=== PATIENT | male | born 1960 | race Caucasian/White ===

== ENCOUNTER 2017-02-21 16:05 | Emergency (ER) | payer BC ==
[~2017-02-21 16:05] MED LIST: ALBUTEROL0.63 MG/3 INH; BACTRIM DS TAB1 EACH PO; CIPRO500 MG PO; COLCHICINE 0.60.6 MG PO; FERROUS SULFAT325 MG PO; K-DUR TAB 10 M10 MEQ PO; LASIX20 MG PO; LISINOPRIL20 MG PO; NEURONTIN 300300 MG PO; NORVASC 5 MG TAB5 MG PO; PLAVIX 75 MG TA75 MG PO; SINGULAIR10 MG PO; TIZANIDINE HCL4 MG PO; TOPROL XL 50 MG50 MG PO; ULTRAM50 MG PO; VITAMIN D250000 UNIT PO
[2017-02-21 20:43] LABS: HEMOGLOBIN 15.7 gm/dl (14.0-17.5); RED BLOOD COUNT 4.91 M/UL (4.20-5.50); WHITE BLOOD COUNT 10.4 K/UL (4.5-11.0)
[2017-08-23] MEDS ORDERED: SEROQUEL200 MG PO (09:19)
[2017-08-23] MEDS ORDERED: KLONOPIN TAB 00.5 MG PO (09:19)
[2017-08-23] MEDS ORDERED: SYMBICORT 16010.2 GM INH (09:20)
[2017-08-23] MEDS ORDERED: DALIRESP500 MCG PO (09:20)
[2017-08-23] MEDS ORDERED: COMBIVENT RESPIM4 GM INH (09:22)
[2017-08-23] MEDS ORDERED: VITAMIN D250000 UNIT PO (09:24)
[2017-08-23] MEDS ORDERED: [UNRECOGNIZED DRUG - OTHER] INH (09:59)
[2017-08-26] MEDS ORDERED: CEFUROXIME250 MG PO (16:34)
[2017-08-26] MEDS ORDERED: MEDROL DOSEPAK 24 MG PO (16:36)
[2017-08-26] MEDS ORDERED: LOPRESSOR 25 MG25 MG PO (16:37)
[2017-08-26] MEDS ORDERED: HABITROL 21 MG P1 EA TD (16:37)
== END 2017-02-21 23:05 | disposition home or self-care (01) ==
LOC: ER1 16:05
PROVIDERS: Emergency Medicine
DX: L03.115 Cellulitis of right lower limb (principal); E11.628 Type 2 diabetes mellitus with other skin complications; I12.9 Hypertensive chronic kidney disease with stage 1 through stage 4 chronic kidney disease, or unspecified chronic kidney disease; E11.22 Type 2 diabetes mellitus with diabetic chronic kidney disease; N18.9 Chronic kidney disease, unspecified; Z88.5 Allergy status to narcotic agent; Z88.6 Allergy status to analgesic agent
CPT/HCPCS: 36415; 71020; 80048; 81001; 83605; 83880; 84484; 85025; 87040; 87086; 93005; 94664; 96365; 96372; 99283; J1650

== ENCOUNTER → 2017-02-22 | Outpatient (CLI) | payer BC ==
[~2017-02-22] MED LIST changes: +ASPIR-LOW81 MG PO; +CATAPRES 0.1MG0.1 MG PO; +CEFUROXIME250 MG PO; +COMBIVENT RESPIM4 GM INH; +DALIRESP500 MCG PO; +DIAMOX 250 MG250 MG PO; +ELIQUIS 5 MG TAB5 MG PO; +ELIQUIS5 MG PO; +HABITROL 21 MG P1 EA TD; +KLONOPIN TAB 00.5 MG PO; +LEVAQUIN750 MG PO; +LOPRESSOR 25 MG25 MG PO; +LORTAB 5-325 M1 EACH PO; +MEDROL DOSEPAK 24 MG PO; +NORCO 5-325 TA1 EACH PO; +SEROQUEL200 MG PO; +SYMBICORT 16010.2 GM INH; +TUDORZA PRESS400 MCG INH; +ULORIC 40 MG TA40 MG PO; +VALIUM 5 MG TAB5 MG PO; +VENLAFAXINE HCL75 MG PO; +[UNRECOGNIZED DRUG - OTHER] INH
== END ==
LOC: US 11:08
DX: I82.401 Acute embolism and thrombosis of unspecified deep veins of right lower extremity (principal)
CPT/HCPCS: 93971

== ENCOUNTER 2017-03-17 11:56 | Observation (INO) | payer BC ==
[~2017-03-17] VITALS: Ht 177.8 cm; Wt 83.5 kg
[~2017-03-17 11:56] MED LIST changes: -ASPIR-LOW81 MG PO; -CATAPRES 0.1MG0.1 MG PO; -CEFUROXIME250 MG PO; -COMBIVENT RESPIM4 GM INH; -DALIRESP500 MCG PO; -DIAMOX 250 MG250 MG PO; -ELIQUIS 5 MG TAB5 MG PO; -ELIQUIS5 MG PO; -HABITROL 21 MG P1 EA TD; -KLONOPIN TAB 00.5 MG PO; -LEVAQUIN750 MG PO; -LOPRESSOR 25 MG25 MG PO; -LORTAB 5-325 M1 EACH PO; -MEDROL DOSEPAK 24 MG PO; -NORCO 5-325 TA1 EACH PO; -SEROQUEL200 MG PO; -SYMBICORT 16010.2 GM INH; -TUDORZA PRESS400 MCG INH; -ULORIC 40 MG TA40 MG PO; -VALIUM 5 MG TAB5 MG PO; -VENLAFAXINE HCL75 MG PO; -[UNRECOGNIZED DRUG - OTHER] INH
[2017-03-17 12:57] LABS: HEMOGLOBIN 17.6 gm/dl (14.0-17.5); RED BLOOD COUNT 5.48 M/UL (4.20-5.50); WHITE BLOOD COUNT 15.8 K/UL (4.5-11.0)
[2017-03-17 13:09] LABS: BUN/CREATININE RATIO 29 (0-10)
[2017-03-17] MEDS ORDERED: LORTAB 5-325 M1 EACH PO (16:50)
[2017-03-17] MEDS ORDERED: VALIUM 5 MG TAB5 MG PO (16:51)
[2017-03-17] MEDS ORDERED: ASPIR-LOW81 MG PO (16:53)
[2017-03-17] MEDS ORDERED: VENLAFAXINE HCL75 MG PO (17:21)
[2017-03-17] MEDS ORDERED: ULORIC 40 MG TA40 MG PO (17:22)
[2017-03-17] MEDS ORDERED: SINGULAIR10 MG PO (17:22)
[2017-03-17] MEDS ORDERED: CATAPRES 0.1MG0.1 MG PO (17:22)
[2017-03-18 07:17] LABS: HEMOGLOBIN 16.5 gm/dl (14.0-17.5); RED BLOOD COUNT 5.16 M/UL (4.20-5.50); WHITE BLOOD COUNT 11.9 K/UL (4.5-11.0)
[2017-03-18 07:42] LABS: BUN/CREATININE RATIO 28 (0-10)
[2017-03-18] MEDS ORDERED: VALIUM 5 MG TAB5 MG PO (19:42)
[2017-03-18] MEDS ORDERED: ELIQUIS 5 MG TAB5 MG PO (19:53)
[2017-03-18] MEDS ORDERED: ELIQUIS5 MG PO ×2 (19:54→19:55)
[2017-03-18] MEDS ORDERED: NORCO 5-325 TA1 EACH PO (19:56)
[2017-08-23] MEDS ORDERED: SEROQUEL200 MG PO (09:19)
[2017-08-23] MEDS ORDERED: KLONOPIN TAB 00.5 MG PO (09:19)
[2017-08-23] MEDS ORDERED: SYMBICORT 16010.2 GM INH (09:20)
[2017-08-23] MEDS ORDERED: DALIRESP500 MCG PO (09:20)
[2017-08-23] MEDS ORDERED: COMBIVENT RESPIM4 GM INH (09:22)
[2017-08-23] MEDS ORDERED: VITAMIN D250000 UNIT PO (09:24)
[2017-08-23] MEDS ORDERED: [UNRECOGNIZED DRUG - OTHER] INH (09:59)
[2017-08-26] MEDS ORDERED: CEFUROXIME250 MG PO (16:34)
[2017-08-26] MEDS ORDERED: MEDROL DOSEPAK 24 MG PO (16:36)
[2017-08-26] MEDS ORDERED: LOPRESSOR 25 MG25 MG PO (16:37)
[2017-08-26] MEDS ORDERED: HABITROL 21 MG P1 EA TD (16:37)
== END 2017-03-18 20:32 | disposition home or self-care (01) ==
LOC: ER1 11:56 → MED SURG 4 15:25 → ZEROF 15:25 → M/S 18:19 → MED SURG 4 03-18 05:52
PROVIDERS: Emergency Medicine; ADMIT Internal Medicine
DX: I82.401 Acute embolism and thrombosis of unspecified deep veins of right lower extremity (principal); D72.829 Elevated white blood cell count, unspecified; I10 Essential (primary) hypertension; J44.9 Chronic obstructive pulmonary disease, unspecified; M19.90 Unspecified osteoarthritis, unspecified site; D75.1 Secondary polycythemia; M10.9 Gout, unspecified; F41.9 Anxiety disorder, unspecified; F17.290 Nicotine dependence, other tobacco product, uncomplicated; Z79.01 Long term (current) use of anticoagulants; Z79.82 Long term (current) use of aspirin; Z79.02 Long term (current) use of antithrombotics/antiplatelets; Z79.899 Other long term (current) drug therapy; Z98.1 Arthrodesis status; Z88.6 Allergy status to analgesic agent
CPT/HCPCS: 36415; 80048; 80053; 83735; 85025; 85379; 85610; 85730; 93005; 93925; 94640; 94664; 96372; 96374; 96376; 99284; G0378; J1650; J2270; J2405

== ENCOUNTER → 2017-03-17 | Outpatient (CLI) | payer BC | LOC: KOH-I 10:49 | DX: I83.811 Varicose veins of right lower extremity with pain (principal); I82.4Y1 Acute embolism and thrombosis of unspecified deep veins of right proximal lower extremity | CPT/HCPCS: 93971 ==

== ENCOUNTER → 2017-05-11 | Outpatient (CLI) | payer BC ==
[~2017-05-11] MED LIST changes: +ASPIR-LOW81 MG PO; +CATAPRES 0.1MG0.1 MG PO; +CEFUROXIME250 MG PO; +COMBIVENT RESPIM4 GM INH; +DALIRESP500 MCG PO; +DIAMOX 250 MG250 MG PO; +ELIQUIS 5 MG TAB5 MG PO; +ELIQUIS5 MG PO; +HABITROL 21 MG P1 EA TD; +KLONOPIN TAB 00.5 MG PO; +LEVAQUIN750 MG PO; +LOPRESSOR 25 MG25 MG PO; +LORTAB 5-325 M1 EACH PO; +MEDROL DOSEPAK 24 MG PO; +NORCO 5-325 TA1 EACH PO; +SEROQUEL200 MG PO; +SYMBICORT 16010.2 GM INH; +TUDORZA PRESS400 MCG INH; +ULORIC 40 MG TA40 MG PO; +VALIUM 5 MG TAB5 MG PO; +VENLAFAXINE HCL75 MG PO; +[UNRECOGNIZED DRUG - OTHER] INH
== END ==
LOC: ECHO 11:18
DX: R06.02 Shortness of breath (principal); R60.1 Generalized edema; I07.1 Rheumatic tricuspid insufficiency; I27.2 Other secondary pulmonary hypertension; I10 Essential (primary) hypertension
CPT/HCPCS: ECHO; 93306

== ENCOUNTER 2017-05-12 10:29 | Inpatient (IN) | payer BC ==
[~2017-05-12] VITALS: Ht 177.8 cm; Wt 88.1 kg
[~2017-05-12 10:29] MED LIST changes: -CEFUROXIME250 MG PO; -COMBIVENT RESPIM4 GM INH; -DALIRESP500 MCG PO; -DIAMOX 250 MG250 MG PO; -HABITROL 21 MG P1 EA TD; -KLONOPIN TAB 00.5 MG PO; -LEVAQUIN750 MG PO; -LOPRESSOR 25 MG25 MG PO; -MEDROL DOSEPAK 24 MG PO; -SEROQUEL200 MG PO; -SYMBICORT 16010.2 GM INH; -TUDORZA PRESS400 MCG INH; -[UNRECOGNIZED DRUG - OTHER] INH
[2017-05-12 15:19] LABS: HEMOGLOBIN 16.8 gm/dl (14.0-17.5); RED BLOOD COUNT 5.17 M/UL (4.20-5.50); WHITE BLOOD COUNT 6.5 K/UL (4.5-11.0)
[2017-05-12 15:42] LABS: BUN/CREATININE RATIO 29 (0-10)
[2017-05-13] MEDS ORDERED: ULORIC 40 MG TA40 MG PO (02:24)
[2017-05-13] MEDS ORDERED: TUDORZA PRESS400 MCG INH (02:24)
[2017-05-13 05:46] LABS: BUN/CREATININE RATIO 30 (0-10)
[2017-05-14 04:19] LABS: HEMOGLOBIN 17.6 gm/dl (14.0-17.5); RED BLOOD COUNT 5.6 M/UL (4.20-5.50)
[2017-05-14 04:21] LABS: WHITE BLOOD COUNT 8.7 K/UL (4.5-11.0)
[2017-05-14 04:42] LABS: BUN/CREATININE RATIO 44 (0-10)
[2017-05-15 04:13] LABS: HEMOGLOBIN 17.3 gm/dl (14.0-17.5); RED BLOOD COUNT 5.35 M/UL (4.20-5.50); WHITE BLOOD COUNT 7.2 K/UL (4.5-11.0)
[2017-05-15 04:33] LABS: BUN/CREATININE RATIO 35 (0-10)
[2017-05-16 03:57] LABS: HEMOGLOBIN 16.8 gm/dl (14.0-17.5); RED BLOOD COUNT 5.35 M/UL (4.20-5.50); WHITE BLOOD COUNT 5.9 K/UL (4.5-11.0)
[2017-05-16 04:18] LABS: BUN/CREATININE RATIO 34 (0-10)
--- NOTE | 2017-05-16 17:29 | NUR ---
REPORT TO [facility] FOR TRANSFER TO ROOM [id number]
[2017-05-17] MEDS ORDERED: LEVAQUIN750 MG PO (16:09)
[2017-05-17] MEDS ORDERED: DIAMOX 250 MG250 MG PO (16:10)
[2017-08-23] MEDS ORDERED: SEROQUEL200 MG PO (09:19)
[2017-08-23] MEDS ORDERED: KLONOPIN TAB 00.5 MG PO (09:19)
[2017-08-23] MEDS ORDERED: DALIRESP500 MCG PO (09:20)
[2017-08-23] MEDS ORDERED: SYMBICORT 16010.2 GM INH (09:20)
[2017-08-23] MEDS ORDERED: COMBIVENT RESPIM4 GM INH (09:22)
[2017-08-23] MEDS ORDERED: VITAMIN D250000 UNIT PO (09:24)
[2017-08-23] MEDS ORDERED: [UNRECOGNIZED DRUG - OTHER] INH (09:59)
[2017-08-26] MEDS ORDERED: CEFUROXIME250 MG PO (16:34)
[2017-08-26] MEDS ORDERED: MEDROL DOSEPAK 24 MG PO (16:36)
[2017-08-26] MEDS ORDERED: HABITROL 21 MG P1 EA TD (16:37)
[2017-08-26] MEDS ORDERED: LOPRESSOR 25 MG25 MG PO (16:37)
== END 2017-05-17 17:09 | disposition home or self-care (01) | DRG 189 ==
LOC: ER1 10:29 → ZEROF 22:15 → M/S 22:15 → PROG CARE 05-13 11:42 → M/S 05-16 17:18
PROVIDERS: Internal Medicine; Student in an Organized Health Care Education/Training Program; ADMIT Internal Medicine
DX: J96.21 Acute and chronic respiratory failure with hypoxia (principal); J44.0 Chronic obstructive pulmonary disease with (acute) lower respiratory infection; E87.3 Alkalosis; J44.1 Chronic obstructive pulmonary disease with (acute) exacerbation; J98.11 Atelectasis; I82.503 Chronic embolism and thrombosis of unspecified deep veins of lower extremity, bilateral; J96.22 Acute and chronic respiratory failure with hypercapnia; J20.9 Acute bronchitis, unspecified; F17.210 Nicotine dependence, cigarettes, uncomplicated; I27.81 Cor pulmonale (chronic); I27.2 Other secondary pulmonary hypertension; G47.33 Obstructive sleep apnea (adult) (pediatric); I12.9 Hypertensive chronic kidney disease with stage 1 through stage 4 chronic kidney disease, or unspecified chronic kidney disease; R60.0 Localized edema; N18.9 Chronic kidney disease, unspecified; D75.1 Secondary polycythemia; F32.9 Major depressive disorder, single episode, unspecified; G89.29 Other chronic pain; M54.9 Dorsalgia, unspecified; F41.9 Anxiety disorder, unspecified; F40.240 Claustrophobia; M19.90 Unspecified osteoarthritis, unspecified site; Z86.39 Personal history of other endocrine, nutritional and metabolic disease; Z88.6 Allergy status to analgesic agent; Z88.8 Allergy status to other drugs, medicaments and biological substances; Z88.5 Allergy status to narcotic agent; Z79.01 Long term (current) use of anticoagulants; Z79.891 Long term (current) use of opiate analgesic; Z79.82 Long term (current) use of aspirin; Z79.02 Long term (current) use of antithrombotics/antiplatelets; Z79.51 Long term (current) use of inhaled steroids; Z79.899 Other long term (current) drug therapy
CPT/HCPCS: 36415; 36600; 71010; 80048; 80053; 81001; 82550; 82553; 82803; 83735; 83874; 83880; 84100; 84484; 85025; 85027; 85610; 85730; 87040; 87070; 87077; 87086; 87186; 87205; 87278; 87899; 93005; 93925; 93970; 94640; 94660; 94664; 96374; 96375; 96376; 99285; G0378; J0456; J0696; J1120; J1940; J2270; J2930; J7030; J7050

== ENCOUNTER 2017-05-20 09:24 | Emergency (ER) | payer BC ==
[~2017-05-20 09:24] MED LIST changes: +DIAMOX 250 MG250 MG PO; +LEVAQUIN750 MG PO; +TUDORZA PRESS400 MCG INH
[2017-05-20 10:36] LABS: RED BLOOD COUNT 5.02 M/UL (4.20-5.50); WHITE BLOOD COUNT 11.2 K/UL (4.5-11.0)
[2017-08-23] MEDS ORDERED: KLONOPIN TAB 00.5 MG PO (09:19)
[2017-08-23] MEDS ORDERED: SEROQUEL200 MG PO (09:19)
[2017-08-23] MEDS ORDERED: DALIRESP500 MCG PO (09:20)
[2017-08-23] MEDS ORDERED: SYMBICORT 16010.2 GM INH (09:20)
[2017-08-23] MEDS ORDERED: COMBIVENT RESPIM4 GM INH (09:22)
[2017-08-23] MEDS ORDERED: VITAMIN D250000 UNIT PO (09:24)
[2017-08-23] MEDS ORDERED: [UNRECOGNIZED DRUG - OTHER] INH (09:59)
[2017-08-26] MEDS ORDERED: CEFUROXIME250 MG PO (16:34)
[2017-08-26] MEDS ORDERED: MEDROL DOSEPAK 24 MG PO (16:36)
[2017-08-26] MEDS ORDERED: LOPRESSOR 25 MG25 MG PO (16:37)
[2017-08-26] MEDS ORDERED: HABITROL 21 MG P1 EA TD (16:37)
== END 2017-05-20 12:33 ==
LOC: ER1 09:24
PROVIDERS: Emergency Medicine
DX: N17.9 Acute kidney failure, unspecified (principal); R65.11 Systemic inflammatory response syndrome (SIRS) of non-infectious origin with acute organ dysfunction; G93.40 Encephalopathy, unspecified; E87.5 Hyperkalemia; E87.2 Acidosis; J44.9 Chronic obstructive pulmonary disease, unspecified; Z88.5 Allergy status to narcotic agent; Z88.6 Allergy status to analgesic agent
CPT/HCPCS: 36415; 36600; 70450; 71010; 80053; 82140; 82550; 82553; 82803; 82962; 83605; 83690; 83874; 83880; 84484; 85025; 85610; 85730; 87040; 93005; 96374; 96375; 99285; J0610; J0692; J1815; J3370; J7050